=== PATIENT | female | born 1945 | race African-American/Black ===

== ENCOUNTER 2019-12-10 10:17 | Emergency (ER) | payer OTHER ==
[~2019-12-10] VITALS: Ht 172.7 cm; Wt 75.0 kg
[2019-12-10] MEDS ORDERED: NITROGLYCERIN OINT 1GM/INCH UDPKT TD ONE (10:45)
[2019-12-10] MEDS ORDERED: MORPHINE SULFATE 2 MG/ML CPJ (NOT FOR IM USE) IV ONE ×2 (10:45→12:15)
[2019-12-10 11:26] LABS: BASOPHILS % 1.1 % (0.0-2.0); EOSINOPHILS % 2.7 % (0.0-5.0); HEMATOCRIT. 36.7 % (36.0-48.0); MEAN CORPUSCULAR HEMOGLOBIN 29.7 pg (28.0-32.0); MEAN CORPUSCULAR VOLUME 90.7 fL (81.0-99.0); MEAN PLATELET VOLUME 8.5 fl (7.4-10.4); MONOCYTES % 8.8 % (2.0-8.0); NEUTROPHILS % 49.4 % (40.0-76.0); PLATELET 177 x1000/uL (130-400); RED BLOOD CELL COUNT 4.04 mill/uL (4.2-5.4); RED CELL DISTRIBUTION WIDTH 13.3 % (11.6-14.6)
[2019-12-10 11:33] LABS: CHLORIDE 107 mEq/L (98-107)
[2019-12-10 11:37] LABS: PROTHROMBIN TIME 10.3 sec (9.6-11.0)
[2019-12-10] MEDS ORDERED: KETOROLAC 15MG/ML VIAL IV ONE (14:00)
[2019-12-10] MEDS ORDERED: IOHEXOL-350 100 ML BOTTLE ONE (14:17)
[2019-12-10 15:08] VITALS: BP 168/79
== END 2019-12-10 15:35 | disposition short-term general hospital (02) ==
LOC: ER 10:17 → EDSEX 10:17 → EDBEDREQTM 13:38 → ER 15:35 → CANBEDREQ 17:54
DX: R07.89 Other chest pain (principal); I10 Essential (primary) hypertension; I25.2 Old myocardial infarction; I25.10 Atherosclerotic heart disease of native coronary artery without angina pectoris; E78.00 Pure hypercholesterolemia, unspecified
CPT/HCPCS: 36415; 71045; 71275; 74174; 80053; 83880; 84484; 85025; 85610; 93005; 96374; 96375; 99285; J1885; J2270; Q9967

== ENCOUNTER 2020-03-19 23:16 | Emergency (ER) | payer OTHER ==
[~2020-03-19] VITALS: Ht 170.2 cm; Wt 64.0 kg
[2020-03-20] MEDS ORDERED: ONDANSETRON HCL 4MG/2ML INJ IV STA (00:11)
[2020-03-20] MEDS ORDERED: MECLIZINE 12.5MG TABLET PO ONE (00:15)
[2020-03-20 00:37] LABS: BASOPHILS % 0.8 % (0.0-2.0); EOSINOPHILS % 3.2 % (0.0-5.0); HEMATOCRIT. 36.8 % (36.0-48.0); HEMOGLOBIN. 12.1 g/dL (12.0-16.0); LYMPHOCYTES % 29.7 % (20.0-50.0); MEAN CORPUSCULAR HEMOGLOBIN 29.6 pg (28.0-32.0); MEAN CORPUSCULAR VOLUME 89.8 fL (81.0-99.0); MONOCYTES % 7.8 % (2.0-8.0); NEUTROPHILS % 58.5 % (40.0-76.0); PLATELET 220 x1000/uL (130-400); RED CELL DISTRIBUTION WIDTH 13.3 % (11.6-14.6)
[2020-03-20 00:41] LABS: CHLORIDE 106 mEq/L (98-107)
[2020-03-20 04:07] VITALS: BP 125/68
== END 2020-03-20 04:13 | disposition home or self-care (01) ==
LOC: ER 23:16
DX: I10 Essential (primary) hypertension (principal); I25.2 Old myocardial infarction
CPT/HCPCS: 36415; 70450; 71045; 80053; 84484; 85025; 93005; 96374; 99285; J2405; J8597

== ENCOUNTER 2024-04-20 14:25 | Emergency (ER) | payer OTHER ==
[~2024-04-20] VITALS: Ht 165.1 cm; Wt 70.0 kg
[2024-04-20 14:26] VITALS: O2SAT 99
[2024-04-20 15:12] LABS: BASOPHILS % 1.1 % (0.0-2.0); EOSINOPHILS % 4.1 % (0.0-5.0); HEMATOCRIT. 35.2 % (36.0-48.0); HEMOGLOBIN. 11.5 g/dL (12.0-16.0); LYMPHOCYTES % 26.6 % (20.0-50.0); MEAN CORPUSCULAR HEMOGLOBIN 29.6 pg (28.0-32.0); MEAN CORPUSCULAR HGB CONC 32.7 g/dL (31.0-37.0); MEAN CORPUSCULAR VOLUME 90.3 fL (81.0-99.0); MEAN PLATELET VOLUME 8.2 fl (7.4-10.4); MONOCYTES % 8.4 % (2.0-8.0); NEUTROPHILS % 59.8 % (40.0-76.0); PLATELET 263 x1000/uL (130-400); RED CELL DISTRIBUTION WIDTH 13.7 % (11.6-14.6); WHITE BLOOD COUNT 7.9 x1000/uL (4.5-11.0)
[2024-04-20 15:20] LABS: CHLORIDE 103 mEq/L (98-107); POTASSIUM 4.3 mEq/L (3.5-5.1); SODIUM 140 mEq/L (136-145)
[2024-04-20 15:21] LABS: CARBON DIOXIDE 33 mEq/L (21-32)
[2024-04-20 15:22] LABS: CALCIUM 9.9 mg/dL (8.7-10.4)
[2024-04-20 15:26] LABS: CREATININE 1.1 mg/dL (0.6-1.0); GLUCOSE 98 mg/dL (70-105)
[2024-04-20 15:27] LABS: TROPONIN I HIGH SENSITIVITY 4 ng/L (3.0-34); UREA NITROGEN BLOOD 25 mg/dL (9-23)
[2024-04-20 15:28] LABS: ALANINE AMINOTRANSFERASE 27 IU/L (10-49); ASPARTATE AMINOTRANSFERASE 30 IU/L (<34)
[2024-04-20 15:29] LABS: BILIRUBIN TOTAL 0.8 mg/dL (0.1-1.0); PROTEIN TOTAL 7.4 g/dL (6.0-8.3)
[2024-04-20 19:41] VITALS: BP 156/58; PULSE 59; RESP 16; TEMP 36.94740; O2SAT 99
== END 2024-04-20 19:59 | disposition short-term general hospital (02) ==
LOC: ER 15:04
DX: R42 Dizziness and giddiness (principal); R11.2 Nausea with vomiting, unspecified; I10 Essential (primary) hypertension; I25.2 Old myocardial infarction; E78.5 Hyperlipidemia, unspecified
CPT/HCPCS: 36415; 80053; 83735; 84484; 85025; 93005; 99285